=== PATIENT | female | born 1980 | race American Indian/Alaskan Native ===

== ENCOUNTER 2024-03-01 23:46 | Observation (INO) | payer MEDICAID ==
[2024-03-02 00:33] LABS: BASOPHILS ABSOLUTE AUTO 0.05 10^3/uL (0.00-0.50); EOSINOPHILS ABSOLUTE AUTO 0.24 10^3/uL (0.00-1.50); EOSINOPHILS PERCENT AUTO 4.6 % (0-6); HEMATOCRIT 35.2 % (37.0-47.0); HEMOGLOBIN 11.3 g/dL (12.0-16.0); IMMATURE GRAN ABSOLUTE AUTO 0.01 10^3/uL (0.00-0.49); IMMATURE GRAN PERCENT AUTO 0.2 % (0.0-4.9); LYMPHOCYTES ABSOLUTE AUTO 2.87 10^3/uL (0.60-5.00); LYMPHOCYTES PERCENT AUTO 55.1 % (24-44); MEAN CORPUSCULAR HEMOGLOBIN 25.7 pg (27.0-32.0); MEAN CORPUSCULAR HGB CONC 32.1 g/dL (32.0-36.0); MONOCYTES ABSOLUTE AUTO 0.26 10^3/uL (0.00-1.50); NEUTROPHILS ABSOLUTE AUTO 1.78 x10^3/uL (1.80-8.00); NEUTROPHILS PERCENT AUTO 34.1 % (41-71); PLATELET COUNT,PLT 297 10^3/uL (150-400); WHITE BLOOD CELL COUNT,WBC 5.2 10^3/uL (4.0-11.0)
[2024-03-02 00:46] LABS: ALANINE AMINOTRANSFERASE,ALT 41 U/L (12-78); ALBUMIN 3.5 g/dL (3.4-5.0); ALKALINE PHOSPHATASE 202 U/L (46-116); ASPARTATE AMNIOTRANSFERASE,AST 33 U/L (15-37); BILIRUBIN TOTAL 0.3 mg/dL (0.0-1.0); BLOOD UREA NITROGEN,BUN 12 mg/dL (7-18); C-REACTIVE PROTEIN < 0.50 mg/dL (<=0.50); CALCIUM 8.3 mg/dL (8.4-10.1); CARBON DIOXIDE,CO2 26 mmol/L (21-32); CHLORIDE,CL 104 mEq/L (98-106); CREATININE 0.7 mg/dL (0.6-1.0); EST CRCL DRUG DOSING (CG) 81.11 mL/min; ESTIMATED GFR 109 mL/min (>=60); ETHANOL BLOOD MEDICAL 189 mg/dL (0-3); GLUCOSE RANDOM 100 mg/dL (75-99); POTASSIUM,K 3.8 mEq/L (3.5-5.0); PROTEIN TOTAL,TP 8.2 g/dL (6.4-8.2); SODIUM,NA 144 mEq/L (136-145)
[2024-03-02] MEDS: Sodium Chloride 0.9% 1,000 ML IV ONE (01:22)
[2024-03-02] MEDS ORDERED: Ondansetron 4 MG/2 ML SDV IV PRN (02:06)
[2024-03-02] MEDS ORDERED: Sodium Chloride 0.9% 10 ML Syringe FLUSH PRN (02:06)
[2024-03-02] MEDS ORDERED: Ondansetron 4 MG Tab.DIS PO PRN (02:06)
[2024-03-02] MEDS ORDERED: Acetaminophen 325 MG Tab PO PRN (02:06)
[2024-03-02 08:00] VITALS: BP 132/87; PULSE 98
== END 2024-03-02 14:15 | disposition home or self-care (01) ==
LOC: CC.ED 23:46 → CC.MS 03-02 01:23 → UNDOADMOB 03-02 01:50 → CC.MS 03-02 01:50
PROVIDERS: ADMIT Physician Assistant Medical; ATTEND Physician Assistant Medical
DX: F10.920 Alcohol use, unspecified with intoxication, uncomplicated (principal); R07.89 Other chest pain; R53.1 Weakness; M54.2 Cervicalgia; R20.2 Paresthesia of skin; F41.9 Anxiety disorder, unspecified; F17.210 Nicotine dependence, cigarettes, uncomplicated; Z79.899 Other long term (current) drug therapy
CPT/HCPCS: 36415; 70450; 72125; 80053; 80307; 85025; 86140; 96360; 99285-25; J7030